=== PATIENT | female | born 1985 | race Caucasian/White ===

== ENCOUNTER 2024-09-10 11:08 | Inpatient (IN) | payer MEDICAID ==
[~2024-09-10] VITALS: Ht 160 cm; Wt 100.0 kg
[2024-09-10] MEDS ORDERED: LOSA25TA13 PO (14:55)
[2024-09-10] MEDS ORDERED: BUPR150T12 PO (14:55)
[2024-09-10] MEDS ORDERED: HOME MED LIST COMPLETE! XX SCH (14:55)
[2024-09-10] MEDS ORDERED: HYDR-4570 PO (14:55)
[2024-09-10] MEDS ORDERED: HYDR-3490 PO (14:55)
[2024-09-10] MEDS ORDERED: LEXA1TAB PO (14:55)
[2024-09-10] MEDS ORDERED: D31000TA PO (14:55)
[2024-09-10] MEDS ORDERED: ROSU5TAB49 PO (14:55)
[2024-09-10] MEDS ORDERED: MAALOX 30 ML SUSP *UDC PO PRN (15:55)
[2024-09-10] MEDS ORDERED: OLANZapine ORAL DISINTEGRATING TAB 5MG PO PRN (15:55)
[2024-09-10] MEDS ORDERED: diphenhydrAMINE 25MG CAP PO PRN (15:55)
[2024-09-10] MEDS ORDERED: MOM 30ML SUSPENSION UDC PO PRN (15:55)
[2024-09-10] MEDS ORDERED: LORazepam 2 MG TAB PO PRN (15:55)
[2024-09-10] MEDS ORDERED: IBUPROFEN 400MG TAB PO PRN (15:55)
[2024-09-10 18:30] VITALS: BP 170/101; TEMP 98; O2SAT 97
[2024-09-10 19:00] VITALS: BP 160/90
[2024-09-10 20:00] VITALS: BP 160/90
[2024-09-10] MEDS: THIAMINE 100 MG TAB PO SCH (20:11)
[2024-09-10] MEDS: hydroCHLOROthiazide 12.5 MG CAPSULE PO ONE (20:11)
[2024-09-10] MEDS: ACETAMINOPHEN 325 MG TAB PO PRN (20:11)
[2024-09-10] MEDS: traZODone 50 MG TAB PO PRN (20:11)
[2024-09-10 21:15] VITALS: BP 134/88
[2024-09-11 06:13] VITALS: BP 124/90; TEMP 96.7; O2SAT 97
[2024-09-11] MEDS: FOLIC ACID 1MG TAB PO SCH (08:06)
[2024-09-11] MEDS: MULTIVITAMINS/MINERALS THERAP 1 TAB PO SCH (08:06)
[2024-09-11] MEDS ORDERED: IPRATROPIUM 0.5MG/ALBUTEROL 2.5MG INH SOL UD 3ML (DUONEB) NEB PRN (09:20)
[2024-09-11 14:00] VITALS: BP 128/62
[2024-09-11 15:51] VITALS: BP 152/90; TEMP 97.7; O2SAT 99
[2024-09-11] MEDS: buPROPion **SR TABLET** (ZYBAN) 150MG PO SCH (16:05)
[2024-09-11] MEDS: ROSUVASTATIN 10 MG TAB (CRESTOR) PO SCH (20:12)
[2024-09-11] MEDS: LOSARTAN 25 MG TAB PO SCH (20:14)
[2024-09-12 06:12] VITALS: BP 131/80; TEMP 98.1; O2SAT 99
[2024-09-12] MEDS: PILL CUTTER 1 EACH XX PRN (08:26)
[2024-09-12] MEDS: LOSARTAN 25 MG TAB PO SCH (11:10)
[2024-09-12] MEDS: CEPACOL LOZENGE PO PRN (11:10)
[2024-09-12] MEDS: ESCITALOPRAM OXALATE 10 MG TAB (LEXAPRO) PO SCH (12:33)
[2024-09-12] MEDS ORDERED: ESCITALOPRAM OXALATE 10 MG TAB (LEXAPRO) PO SCH (15:00)
[2024-09-12 15:05] VITALS: BP 130/74; TEMP 97.9; O2SAT 97
[2024-09-12] MEDS: VITAMIN D 1,000 INTERNATIONAL UNITS TABLET PO SCH (15:05)
[2024-09-13 06:20] VITALS: BP 123/76; TEMP 98.9; O2SAT 97
[2024-09-13 08:17] VITALS: BP 122/82
[2024-09-13] MEDS ORDERED: LEXA1TAB PO (11:22)
== END 2024-09-13 13:18 | disposition home or self-care (01) | DRG 774 ==
LOC: M ED 11:08 → M ED INP 15:53 → M PSY 18:46
PROVIDERS: ADMIT Psychiatry & Neurology Psychiatry; ATTEND Psychiatry & Neurology Psychiatry
DX: F10.14 Alcohol abuse with alcohol-induced mood disorder (principal); F14.14 Cocaine abuse with cocaine-induced mood disorder; I10 Essential (primary) hypertension; J45.909 Unspecified asthma, uncomplicated; F41.9 Anxiety disorder, unspecified; Z86.16 Personal history of COVID-19; Z79.899 Other long term (current) drug therapy; Z91.51 Personal history of suicidal behavior; E78.00 Pure hypercholesterolemia, unspecified; Z62.810 Personal history of physical and sexual abuse in childhood; Z81.1 Family history of alcohol abuse and dependence